=== PATIENT | female | born 1945 | race Caucasian/White ===

== ENCOUNTER → 2016-12-12 | Outpatient (CLI) | payer OTHER | LOC: BHFA 13:15 | PROVIDERS: ATTEND Internal Medicine Cardiovascular Disease | DX: I10 Essential (primary) hypertension (principal); E66.9 Obesity, unspecified; E78.5 Hyperlipidemia, unspecified ==

== ENCOUNTER → 2017-04-11 | Outpatient (CLI) | payer OTHER | LOC: CIMAGING 08:56 | PROVIDERS: ATTEND Pain Medicine Interventional Pain Medicine | DX: M51.36 Other intervertebral disc degeneration, lumbar region (principal); M51.35 Other intervertebral disc degeneration, thoracolumbar region; M51.37 Other intervertebral disc degeneration, lumbosacral region; M47.817 Spondylosis without myelopathy or radiculopathy, lumbosacral region; M48.07 Spinal stenosis, lumbosacral region; R39.198 Other difficulties with micturition; M16.9 Osteoarthritis of hip, unspecified; M46.1 Sacroiliitis, not elsewhere classified; G89.4 Chronic pain syndrome; F11.20 Opioid dependence, uncomplicated; M54.5 Low back pain; G47.00 Insomnia, unspecified; N28.9 Disorder of kidney and ureter, unspecified | CPT/HCPCS: 72131-PO; 76770-PO ==

== ENCOUNTER → 2017-04-27 | Outpatient (CLI) | payer OTHER | LOC: BMCIMAGING 14:07 | PROVIDERS: ATTEND Family Medicine | DX: Z12.31 Encounter for screening mammogram for malignant neoplasm of breast (principal) | CPT/HCPCS: G0202 ==

== ENCOUNTER → 2018-08-09 | Outpatient (CLI) | payer OTHER | LOC: BMCIMAGING 15:09 | PROVIDERS: ATTEND Family Medicine | DX: Z12.31 Encounter for screening mammogram for malignant neoplasm of breast (principal) ==

== ENCOUNTER 2019-02-08 14:46 | Inpatient (IN) | payer OTHER | END 2019-02-11 15:01 | disposition home health service (06) | LOC: F2W 20:40 ==